=== PATIENT | female | born 1970 | race Two or more races ===

== ENCOUNTER 2022-03-16 02:54 | Emergency (ER) | payer SELFPAY ==
[~2022-03-16] VITALS: Ht 165.1 cm; Wt 77.1 kg
--- NOTE | 2022-03-16 03:17 | NUR ---
URINE SPECIMEN SENT TO LAB
[2022-03-16] MEDS ORDERED: LIDOCAINE VISCOUS 2% UD 15 ML UDC ONE (03:18)
[2022-03-16] MEDS ORDERED: MAG HYDROX/AL HYDROX/SIMETH 30 ML UDC ONE (03:18)
[2022-03-16] MEDS ORDERED: MAG HYDROX/AL HYDROX/SIMETH 30 ML UDC PO ONE (03:30)
[2022-03-16] MEDS ORDERED: LIDOCAINE VISCOUS 2% UD 15 ML UDC MM ONE (03:30)
[2022-03-16] MEDS ORDERED: PANT40TA2 PO (04:03)
[2022-03-16 04:18] VITALS: BP 124/81
--- NOTE | 2022-03-16 04:18 | NUR ---
Patient discharged to home in stable condition. Written and verbal after care instructions given. Patient verbalizes understanding of instruction.
== END 2022-03-16 04:19 | disposition home or self-care (01) ==
LOC: ER 04:10
DX: K21.9 Gastro-esophageal reflux disease without esophagitis (principal); J45.909 Unspecified asthma, uncomplicated; Z60.2 Problems related to living alone; Z79.899 Other long term (current) drug therapy